=== PATIENT | female | born 1935 | race Caucasian/White ===

== ENCOUNTER 2018-01-26 11:03 | Inpatient (IN) | payer MEDICARE ==
[~2018-01-26] VITALS: Ht 167.6 cm; Wt 71.9 kg
[~2018-01-26 11:03] MED LIST: ACTOS30 MG PO; ALPRAZOLAM0.25 MG PO; AMARYL1 MG; CELEXA40 MG PO; EVISTA60 MG PO; GLUCOPHAGE1000 MG PO
[2018-01-26 12:23] LABS: BASOPHILS % 0.4 % (0.0-1.0); EOSINOPHILS # (AUTO) 0.2 (0.0-0.4); EOSINOPHILS % 2.3 % (0.0-6.0); HEMATOCRIT 24.7 % (34.2-44.1); HEMOGLOBIN 8.3 g/dL (12.0-16.0); LYMPHOCYTES # (AUTO) 1.7 (1.0-3.2); LYMPHOCYTES % 24.6 % (18.0-39.1); MEAN CORPUSCULAR HEMOGLOBIN 33.9 pg (28-32); MEAN CORPUSCULAR HGB CONC 33.6 g/dL (31-35); MEAN CORPUSCULAR VOLUME 100.8 fL (81-99); MONOCYTES # (AUTO) 0.8 (0.2-0.8); MONOCYTES % 11.5 % (4.4-11.3); NEUTROPHILS # (AUTO) 4.1 (2.1-6.9); NEUTROPHILS % 59.7 % (38.7-80.0); PLATELET COUNT 220 x10e3/uL (140-360); RED BLOOD COUNT 2.45 x10e6/uL (3.6-5.1); RED CELL DISTRIBUTION WIDTH 15.7 % (11.7-14.4)
[2018-01-26 12:43] LABS: ANION GAP 12.3 mmol/L (8-16); BLOOD UREA NITROGEN 7 mg/dL (7-26); BUN/CREATININE RATIO 13 (6-25); CALCIUM 8.4 mg/dL (8.4-10.2); CARBON DIOXIDE 25 mmol/L (22-29); CHLORIDE 102 mmol/L (98-107); CREATININE, SERUM 0.52 mg/dL (0.57-1.11); EST GLOMERULAR FILTRATION RATE > 60 ML/MIN (60-); GLUCOSE 124 mg/dL (74-118); SODIUM 137 mmol/L (136-145)
[2018-01-26 12:44] LABS: POTASSIUM 2.3 mmol/L (3.5-5.1)
[2018-01-26] MEDS ORDERED: POTASSIUM CHLORIDE 10MEQ/100ML 200 ML IV ONE (12:45)
[2018-01-26] MEDS ORDERED: POTASSIUM CHLORIDE 20 MEQ TAB CR PO STA (12:45)
[2018-01-26] MEDS ORDERED: POTASSIUM CHLORIDE 20 MEQ TAB CR PO ONE ×2 (13:27→20:30)
[2018-01-26] MEDS ORDERED: POTASSIUM CHLORIDE 10MEQ/100ML 200 ML ONE (13:27)
[2018-01-26] MEDS ORDERED: MAGNESIUM SULFATE 2GM/50ML 50 ML IV ONE (20:00)
[2018-01-26] MEDS ORDERED: POTASSIUM CHLORIDE 10MEQ/100ML 100 ML IV ONE (20:15)
[2018-01-26] MEDS ORDERED: DEXTROSE 50% SYRINGE 50 ML IV PRN (22:30)
[2018-01-26] MEDS: SODIUM CHLORIDE 0.9% 1000ML 1,000 ML IV SCH (23:13)
[2018-01-26] MEDS: VANCOMYCIN 250MG/5ML ORAL SOLN PO SCH (23:13)
[2018-01-27] VITALS (8 sets, daily range): BP systolic 113–150; BP diastolic 55–67
[2018-01-27] MEDS ORDERED: MAGNESIUM SULFATE 2GM/50ML 50 ML IV ONE (01:00)
[2018-01-27] MEDS: VANCOMYCIN 250MG/5ML ORAL SOLN PO SCH ×4 (05:00→23:59)
[2018-01-27 05:08] LABS: BASOPHILS % 0.5 % (0.0-1.0); EOSINOPHILS # (AUTO) 0.2 (0.0-0.4); EOSINOPHILS % 3.1 % (0.0-6.0); HEMATOCRIT 25.5 % (34.2-44.1); HEMOGLOBIN 8.4 g/dL (12.0-16.0); LYMPHOCYTES # (AUTO) 2.1 (1.0-3.2); LYMPHOCYTES % 32.4 % (18.0-39.1); MEAN CORPUSCULAR HEMOGLOBIN 33.7 pg (28-32); MEAN CORPUSCULAR HGB CONC 32.9 g/dL (31-35); MEAN CORPUSCULAR VOLUME 102.4 fL (81-99); MONOCYTES # (AUTO) 0.8 (0.2-0.8); MONOCYTES % 12.6 % (4.4-11.3); NEUTROPHILS # (AUTO) 3.2 (2.1-6.9); NEUTROPHILS % 49.7 % (38.7-80.0); PLATELET COUNT 218 x10e3/uL (140-360); RED BLOOD COUNT 2.49 x10e6/uL (3.6-5.1); RED CELL DISTRIBUTION WIDTH 15.9 % (11.7-14.4)
[2018-01-27 05:43] LABS: ANION GAP 12.1 mmol/L (8-16); BLOOD UREA NITROGEN 6 mg/dL (7-26); BUN/CREATININE RATIO 13 (6-25); CALCIUM 7.9 mg/dL (8.4-10.2); CARBON DIOXIDE 25 mmol/L (22-29); CHLORIDE 104 mmol/L (98-107); CREATININE, SERUM 0.48 mg/dL (0.57-1.11); EST GLOMERULAR FILTRATION RATE > 60 ML/MIN (60-); GLUCOSE 123 mg/dL (74-118); MAGNESIUM 1.4 MG/DL (1.3-2.1); POTASSIUM 3.1 mmol/L (3.5-5.1); SODIUM 138 mmol/L (136-145)
[2018-01-27] MEDS ORDERED: QUESTRAN PACKET4 GM PO (07:51)
[2018-01-27] MEDS ORDERED: ACETAMINOPHEN325 M1 PO (07:51)
[2018-01-27] MEDS ORDERED: TRAZODONE HCL50 MG PO (07:51)
[2018-01-27] MEDS ORDERED: SIMETHICONE80 MG PO (07:51)
[2018-01-27] MEDS: INSULIN REGULAR, HUMAN 100 UNIT/1 ML 3ML VIAL SQ SCH ×4 (09:27→20:42)
[2018-01-27] MEDS ORDERED: POTASSIUM CHLORIDE 20 MEQ TAB CR PO STA (09:35)
[2018-01-27] MEDS ORDERED: ACETAMINOPHEN 325 MG TAB PO PRN (10:15)
[2018-01-27] MEDS ORDERED: CHOLESTYRAMINE 4 GM PACKET PO PRN (10:15)
[2018-01-27] MEDS ORDERED: ALPRAZOLAM 0.25 MG TAB PO PRN (10:15)
[2018-01-27] MEDS ORDERED: SIMETHICONE 80 MG CHEW PO PRN (10:15)
--- NOTE | 2018-01-27 11:40 | History and Physical ---
HPI: Patient is an 82-year-old white female who has a past medical history positive for leukemia, hypertension, and diabetes. She has history of recurrent Clostridium difficile colitis, came here with severe diarrhea, very low potassium and magnesium. Patient was admitted to the hospital with a possible diagnosis of C. difficile colitis, which was found out later on. REVIEW OF SYSTEMS CARDIOVASCULAR: No chest pain or palpitation. RESPIRATORY: No shortness of breath. No cough. GASTROINTESTINAL: She has nausea, but no vomiting. She does have severe diarrhea. She has gone to the bathroom at least 10 times. GENITOURINARY: No frequency, no dysuria. ALLERGIES: ALLERGIC TO CODEINE, SULFA, AND PENICILLIN. PAST MEDICAL HISTORY 1. Leukemia. 2. History of recurrent colitis. 3. Hypertension. 4. She has anemia of chronic disease. SOCIAL HISTORY: She does not smoke. She does not drink. PHYSICAL EXAMINATION VITAL SIGNS: Blood pressure 135/64, temperature 97.1, heart rate 80 per minute, respiratory rate 19 per minute, oxygen saturation 96%. LABORATORY DATA: On the blood work, we have BMP with a sodium of 138, potassium 3.1, chloride 104, CO2 of 25, BUN 6, creatinine 0.48, glucose 123. On the CBC, white blood count 6.36, hemoglobin 8.4, hematocrit 25.5, platelet count 290,000. FINAL IMPRESSION 1. Clostridium difficile colitis. 2. Hypokalemia. 3. Uncontrolled hypertension. 4. Anemia of chronic disease. 5. Leukemia. 6. Diabetes mellitus type 2. PLAN OF TREATMENT: Continue with normal saline at 75 mL an hour, vancomycin 250 mg p.o. q.6 hours. Contact isolation. Continue monitoring blood sugar a.c. and h.s. Continue with simethicone 125 mg q.6 hours, Tylenol 335 mg q.6 hours as needed, alprazolam 0.25 mg q.12 hours as needed for anxiety, trazodone 50 mg at bedtime, Questran 4 grams twice a day, and citalopram 40 mg daily. Potassium has been replaced. Magnesium has been replaced. We are going to recheck potassium and magnesium levels in the evening and continue diabetic diet. Job#: [id number] LATASHA
[2018-01-27] MEDS: SODIUM CHLORIDE 0.9% 1000ML 1,000 ML IV SCH (11:45)
[2018-01-27 18:03] LABS: MAGNESIUM 1.3 MG/DL (1.3-2.1); POTASSIUM 3.5 mmol/L (3.5-5.1)
[2018-01-27] MEDS: TRAZODONE HCL 50 MG TAB PO PRN (22:40)
[2018-01-28] VITALS (7 sets, daily range): BP systolic 122–161; BP diastolic 57–77
[2018-01-28] MEDS: SODIUM CHLORIDE 0.9% 1000ML 1,000 ML IV SCH ×2 (01:38→15:30)
[2018-01-28] MEDS: VANCOMYCIN 250MG/5ML ORAL SOLN PO SCH ×4 (06:00→23:35)
[2018-01-28] MEDS: INSULIN REGULAR, HUMAN 100 UNIT/1 ML 3ML VIAL SQ SCH ×4 (07:30→21:33)
[2018-01-28] MEDS: METFORMIN HCL 500 MG TAB CR PO SCH (08:05)
[2018-01-28] MEDS: CITALOPRAM HYDROBROMIDE 20 MG TAB PO SCH (08:45)
[2018-01-28] MEDS: RALOXIFENE HCL 60 MG TAB PO SCH (08:45)
[2018-01-28] MEDS ORDERED: NON-FORMULARY MEDICATION (Citalopram Hydrobromide (Celexa) 40 MG) PO SCH (09:00)
[2018-01-28] MEDS ORDERED: NON-FORMULARY MEDICATION (Metformin Hcl (Glucophage) 1,000 MG) PO SCH (09:00)
[2018-01-28] MEDS ORDERED: POTASSIUM CHLORIDE 20 MEQ TAB CR PO STA (17:31)
[2018-01-28] MEDS ORDERED: MAGNESIUM SULFATE 2GM/50ML 50 ML IV ONE (17:45)
--- NOTE | 2018-01-28 18:13 | Progress Note ---
DATE: January 28, 2018 INTERNAL MEDICINE PROGRESS NOTE SUBJECTIVE: The patient is still complaining of diarrhea, but the appetite is better now. PHYSICAL EXAMINATION VITAL SIGNS: Blood pressure 141/67. Temperature 98.7. Heart rate 85 per minute. Respiratory rate 19 per minute. Oxygen saturation 98%. HEART: Regular rhythm. Normal S1, S2 sounds. LUNGS: Clear bilaterally. ABDOMEN: Soft. EXTREMITIES: No evidence of cyanosis, edema or trauma. LABS: On the BMP, sodium 138, potassium 3.5, chloride 104, CO2 25, BUN 6, creatinine 0.48, glucose 123. On the CBC, white blood count 6.36, hemoglobin 8.4, hematocrit 25.5, platelet count 218,000. FINAL IMPRESSION 1. Clostridium difficile colitis. 2. Hypokalemia. 3. Hypertension. 4. Anemia of chronic disease. 5. Leukemia. 6. Diabetes mellitus, type 2. PLAN OF TREATMENT 1. We are going to replace the potassium. 2. We are going to replace magnesium with 2 g of magnesium IV. 3. Continue normal saline at 75 mL an hour. 4. Vancomycin 250 mg p.o. q.6 h. 5. Continue monitoring blood sugar a.c. and nightly. 6. Continue enoxaparin 60 mg daily. 7. Metformin 1,000 mg before breakfast. 8. Tylenol 325 mg q.6 h. as needed. 9. Simethicone 125 mg q.6 h. 10. Alprazolam 0.25 mg twice a day. 11. Trazodone 50 mg at bedtime. 12. Questran 4 grams twice a day. 13. Celexa 40 mg daily. 14. Continue contact isolation. 15. [facility] tomorrow. Job#: [id number]
[2018-01-28] MEDS: TRAZODONE HCL 50 MG TAB PO PRN (22:17)
[2018-01-29] VITALS (8 sets, daily range): BP systolic 125–167; BP diastolic 56–78
[2018-01-29] MEDS: SODIUM CHLORIDE 0.9% 1000ML 1,000 ML IV SCH ×2 (05:45→17:26)
[2018-01-29 05:53] LABS: ANION GAP 11.3 mmol/L (8-16); BLOOD UREA NITROGEN 5 mg/dL (7-26); BUN/CREATININE RATIO 11 (6-25); CALCIUM 7.7 mg/dL (8.4-10.2); CARBON DIOXIDE 24 mmol/L (22-29); CHLORIDE 106 mmol/L (98-107); CREATININE, SERUM 0.47 mg/dL (0.57-1.11); EST GLOMERULAR FILTRATION RATE > 60 ML/MIN (60-); GLUCOSE 111 mg/dL (74-118); POTASSIUM 3.3 mmol/L (3.5-5.1); SODIUM 138 mmol/L (136-145)
[2018-01-29] MEDS: VANCOMYCIN 250MG/5ML ORAL SOLN PO SCH ×4 (05:58→23:50)
[2018-01-29] MEDS: INSULIN REGULAR, HUMAN 100 UNIT/1 ML 3ML VIAL SQ SCH ×4 (07:30→21:46)
[2018-01-29] MEDS: METFORMIN HCL 500 MG TAB CR PO SCH (07:42)
[2018-01-29] MEDS: CITALOPRAM HYDROBROMIDE 20 MG TAB PO SCH (09:08)
[2018-01-29] MEDS: RALOXIFENE HCL 60 MG TAB PO SCH (09:08)
[2018-01-29] MEDS ORDERED: POTASSIUM CHLORIDE 20 MEQ TAB CR PO ONE (16:00)
--- NOTE | 2018-01-29 16:05 | Progress Note ---
DATE: January 29, 2018 INTERNAL MEDICINE PROGRESS NOTE SUBJECTIVE: Patient is doing well. The diarrhea is a little bit less than before. She is eating well. Overall feeling better. PHYSICAL EXAM: VITAL SIGNS: Blood pressure 125/56, temperature is 96.1, heart rate 72 per minute, respiratory rate is 18 per minute. HEART: Shows regular rhythm. Normal S1 and S2 sounds. LUNGS: Clear bilaterally. ABDOMEN: Soft. EXTREMITIES: Show no evidence of cyanosis, edema or trauma. On the BMP: Sodium 138, potassium 3.3, chloride 106, CO2 24, BUN 5, creatinine 0.47, glucose 111. On the CBC: White blood count 6.36, hemoglobin 8.4, hematocrit 25.5, platelet count 210,000. FINAL IMPRESSION: 1. Clostridium difficile colitis. 2. Anemia of chronic disease. 3. Hypokalemia secondary to the diarrhea. 4. Essential hypertension. 5. Leukemia. 6. Diabetes mellitus type 2. PLAN OF TREATMENT: Continue sodium chloride at 75 mL an hour. Replace the potassium as needed. Continue vancomycin 250 mg p.o. q.6 hours. Continue monitoring blood sugar a.c. and nightly. Enoxaparin 60 mg daily. Metformin 1000 mg before breakfast. Simethicone 125 mg q.6 hours. Tylenol 325 mg q.6 hours as needed. Alprazolam 0.25 mg q.12 hours as needed. Trazodone 50 mg at bedtime. Questran 4 grams twice a day. Citalopram 40 mg daily. We are going to replace the potassium. Recheck BMP and magnesium level tomorrow. Job#: [id number] EV
[2018-01-29] MEDS: TRAZODONE HCL 50 MG TAB PO PRN (22:19)
[2018-01-30 01:08] VITALS: BP 147/64
[2018-01-30] MEDS: SODIUM CHLORIDE 0.9% 1000ML 1,000 ML IV SCH (04:36)
[2018-01-30 05:13] LABS: ANION GAP 11.9 mmol/L (8-16); BLOOD UREA NITROGEN 8 mg/dL (7-26); BUN/CREATININE RATIO 15 (6-25); CALCIUM 8.4 mg/dL (8.4-10.2); CARBON DIOXIDE 25 mmol/L (22-29); CHLORIDE 106 mmol/L (98-107); CREATININE, SERUM 0.52 mg/dL (0.57-1.11); EST GLOMERULAR FILTRATION RATE > 60 ML/MIN (60-); GLUCOSE 116 mg/dL (74-118); POTASSIUM 3.9 mmol/L (3.5-5.1); SODIUM 139 mmol/L (136-145)
[2018-01-30] MEDS: VANCOMYCIN 250MG/5ML ORAL SOLN PO SCH ×3 (05:16→18:00)
[2018-01-30 06:31] VITALS: BP 136/60
[2018-01-30] MEDS: INSULIN REGULAR, HUMAN 100 UNIT/1 ML 3ML VIAL SQ SCH ×4 (07:30→20:25)
[2018-01-30] MEDS: METFORMIN HCL 500 MG TAB CR PO SCH (07:30)
[2018-01-30] MEDS: RALOXIFENE HCL 60 MG TAB PO SCH (09:00)
[2018-01-30] MEDS: CITALOPRAM HYDROBROMIDE 20 MG TAB PO SCH (09:00)
[2018-01-30 09:19] VITALS: BP 138/66
[2018-01-30 12:13] VITALS: BP 161/71
[2018-01-30 16:47] VITALS: BP 129/65
[2018-01-30 21:18] VITALS: BP 163/74
[2018-01-30] MEDS: TRAZODONE HCL 50 MG TAB PO PRN (22:25)
[2018-01-31] MEDS: VANCOMYCIN 250MG/5ML ORAL SOLN PO SCH ×4 (00:12→16:45)
[2018-01-31 00:18] VITALS: BP 139/63
[2018-01-31 05:04] VITALS: BP 155/72
[2018-01-31] MEDS: METFORMIN HCL 500 MG TAB CR PO SCH (07:30)
[2018-01-31] MEDS: INSULIN REGULAR, HUMAN 100 UNIT/1 ML 3ML VIAL SQ SCH ×4 (07:30→20:49)
[2018-01-31 08:00] VITALS: BP 129/58
[2018-01-31] MEDS: CITALOPRAM HYDROBROMIDE 20 MG TAB PO SCH (09:00)
[2018-01-31] MEDS: RALOXIFENE HCL 60 MG TAB PO SCH (09:00)
[2018-01-31 12:00] VITALS: BP 149/70
[2018-01-31 16:00] VITALS: BP 139/75
--- NOTE | 2018-01-31 20:07 | Progress Note ---
DATE: January 31, 2018 INTERNAL MEDICINE PROGRESS NOTE SUBJECTIVE: Patient is doing well. She is going to go to a alf tomorrow. PHYSICAL EXAM VITAL SIGNS: Blood pressure 129/58. Temperature 97.8. Heart rate 76 per minute. Respiratory rate 20 per minute. Oxygen saturation 97%. HEART: Regular rhythm. Normal S1, S2 sounds. LUNGS: Clear bilaterally. ABDOMEN: Soft. EXTREMITIES: Show no evidence of cyanosis or trauma. On the BMP, sodium 139, potassium 3.9, chloride 106, CO2 25. BUN 8 creatinine 0.52, glucose 116. CBC showed white blood count 6.36 hemoglobin 8.4, hematocrit 25.5, platelet count 219,000. FINAL IMPRESSIONS 1. Clostridium difficile colitis. 2. Uncontrolled diabetes mellitus, type 2. 3. Osteoporosis. 4. Hypokalemia, which is resolved. PLAN OF TREATMENT 1. Continue vancomycin 250 mg p.o. q.6 h for 10 days. 2. Diabetic diet. 3. Continue monitoring blood sugar a.c. and nightly. 4. Continue metformin 1000 mg daily. 5. Tylenol 325 mg q.6 h as needed. 6. Simethicone 125 mg q.6 h as needed. 1. Alprazolam 0.25 mg twice a day as needed for anxiety. 2. Trazodone 50 mg daily. 3. Questran twice a day. 4. Citalopram 40 mg daily. 5. Raloxifene 60 mg daily. 6. Patient going to go probably to a alf tomorrow. Job#: [id number]
[2018-01-31 20:15] VITALS: BP 139/72
[2018-01-31] MEDS: TRAZODONE HCL 50 MG TAB PO PRN (22:22)
--- NOTE | 2018-01-31 22:37 | Discharge Summary ---
HISTORY: The patient is 82-year-old female, past medical history positive for hypertension, diabetes, comes in with diarrhea from the correction. She was found to have Clostridium difficile colitis. She was started on oral vancomycin. Her diarrhea is slowly slowing down. Her potassium was very low. Her potassium was replaced. Potassium is back to normal. PHYSICAL EXAMINATION VITALS: Blood pressure 129/58, temperature 97.8, heart rate 76 per minute, respiratory rate 20 per minute, oxygen saturation 97%. LABS: On the BNP, sodium 139, potassium 3.9, chloride 106, CO2 25, BUN 8, creatinine 0.52, glucose of 116. On the CBC, white blood count 6.36, hemoglobin 8.4, hematocrit 25.5, platelet count 218,000. FINAL IMPRESSION 1. Clostridium difficile colitis. 2. Hypokalemia which is resolved. 3. Anemia of chronic disease. 4. Uncontrolled diabetes mellitus type 2. 5. Osteoporosis. PLAN OF TREATMENT: We are going to discontinue the IV fluids, continue vancomycin 250 mg p.o. q.6 h. times 10 days. Continue to monitor blood sugar a.c. and at bedtime. Continue Evista 60 mg daily, metformin 1000 mg before breakfast, simethicone 125 mg q.6 h. as needed, Tylenol 325 mg q.6 h. as needed, alprazolam 0.25 mg twice a day as needed, trazodone 50 mg at bedtime, Questran 4 g twice a day, and citalopram 40 mg daily. DISPOSITION: The patient is probably going to go back to correction tomorrow. TYLER CHERRY MD Job#: [id number] SHIRIN
[2018-02-01] MEDS: VANCOMYCIN 250MG/5ML ORAL SOLN PO SCH ×4 (00:01→17:55)
[2018-02-01 00:11] VITALS: BP 115/51
[2018-02-01 05:14] VITALS: BP 152/70
[2018-02-01] MEDS: METFORMIN HCL 500 MG TAB CR PO SCH (07:30)
[2018-02-01] MEDS: INSULIN REGULAR, HUMAN 100 UNIT/1 ML 3ML VIAL SQ SCH ×4 (07:30→21:00)
[2018-02-01 09:00] VITALS: BP 150/64
[2018-02-01] MEDS: RALOXIFENE HCL 60 MG TAB PO SCH (09:00)
[2018-02-01] MEDS: CITALOPRAM HYDROBROMIDE 20 MG TAB PO SCH (09:00)
[2018-02-01 09:41] VITALS: BP 150/64
--- NOTE | 2018-02-01 12:39 | Progress Note ---
DATE: February 01, 2018 INTERNAL MEDICINE PROGRESS NOTE SUBJECTIVE: Patient is doing better. The diarrhea is still there but a little better than before. PHYSICAL EXAM VITAL SIGNS: Blood pressure 150/64, temperature 98.2, heart rate is 77 per minute, respiratory rate 18 per minute, and oxygen saturation 96%. HEART: Regular rhythm. Normal S1, S2 sounds. LUNGS: Clear bilaterally. ABDOMEN: Soft. EXTREMITIES: Show no evidence of cyanosis, edema, or trauma. On the BMP, sodium 139, potassium 3.9, chloride 106, CO2 25, BUN 9, creatinine 0.52, glucose 116. On the CBC, white blood count 6.36, hemoglobin 8.4, hematocrit 25.5, platelet count 280,000. FINAL IMPRESSIONS 1. Clostridium difficile colitis. 2. Chronic anemia. 3. Uncontrolled diabetes mellitus type 2. 4. Osteoporosis. 5. Hypertension. PLAN OF TREATMENT: Continue contact isolation. Continue vancomycin 250 mg p.o. q.6 hours for 10 days. Continue monitoring blood sugar a.c. and nightly. Continue Tylenol 325 mg q.6 hours as needed for pain or fever, simethicone 125 mg q.6 hours as needed, alprazolam 0.25 mg twice a day as needed for anxiety, trazodone 50 mg at night, Questran 4 grams twice a day, citalopram 40 mg daily, raloxifene 60 mg daily, metformin 1,000 mg daily. Patient is still awaiting for bed at a shelter. Apparently they did not have any contact isolation rooms, so she is going to be going to a shelter which is [facility] tomorrow. Job#: [id number] GABRIELLE
[2018-02-01 17:39] VITALS: BP 143/67
[2018-02-01 20:45] VITALS: BP 143/67
[2018-02-01] MEDS: TRAZODONE HCL 50 MG TAB PO PRN (22:28)
[2018-02-02] MEDS: VANCOMYCIN 250MG/5ML ORAL SOLN PO SCH ×3 (00:20→12:04)
[2018-02-02] MEDS: INSULIN REGULAR, HUMAN 100 UNIT/1 ML 3ML VIAL SQ SCH ×2 (07:30→11:30)
[2018-02-02 08:00] VITALS: BP 130/76
[2018-02-02] MEDS ORDERED: GLIMEPIRIDE 2 MG TAB PO SCH (08:00)
[2018-02-02 09:00] VITALS: BP 130/70
[2018-02-02] MEDS: CITALOPRAM HYDROBROMIDE 20 MG TAB PO SCH (09:13)
[2018-02-02] MEDS: RALOXIFENE HCL 60 MG TAB PO SCH (09:13)
[2018-02-02] MEDS: METFORMIN HCL 500 MG TAB CR PO SCH (09:13)
[2018-02-02 12:00] VITALS: BP 130/70
== END 2018-02-02 12:35 | DRG 372 ==
LOC: ER 11:03 → IMCU 22:21 → OBSVTOIN 01-27 10:19 → MED/SURG2 01-27 12:09
PROVIDERS: ADMIT Internal Medicine; ATTEND Internal Medicine
DX: A04.72 Enterocolitis due to Clostridium difficile, not specified as recurrent (principal); C95.90 Leukemia, unspecified not having achieved remission; E87.6 Hypokalemia; E86.0 Dehydration; E11.65 Type 2 diabetes mellitus with hyperglycemia; D63.8 Anemia in other chronic diseases classified elsewhere; M81.0 Age-related osteoporosis without current pathological fracture; Z79.84 Long term (current) use of oral hypoglycemic drugs; I10 Essential (primary) hypertension; F41.9 Anxiety disorder, unspecified
CPT/HCPCS: 36415; 80048; 82270; 82607; 82746; 82948; 83735; 84132; 85025; 86850; 86900; 87045; 87493; 93005; 99284; G0378; J3480; J7030